=== PATIENT | male | born 1965 | race Caucasian/White ===

== ENCOUNTER → 2020-08-22 13:58 | Outpatient (BNVA) | payer MEDICARE, SELFPAY | PROVIDERS: Family Provider Family Medicine; PCP Family Medicine; Visit Provider Nurse Practitioner Family | DX: Z20.828 Contact with and (suspected) exposure to other viral communicable diseases (principal) | CPT/HCPCS: 87635 ==

== ENCOUNTER → 2020-09-18 13:22 | Outpatient (BNVA) | payer MEDICARE, SELFPAY | PROVIDERS: Family Provider Family Medicine; PCP Family Medicine; Visit Provider Family Medicine | DX: M25.512 Pain in left shoulder (principal); N40.0 Benign prostatic hyperplasia without lower urinary tract symptoms; Z12.5 Encounter for screening for malignant neoplasm of prostate; Z13.6 Encounter for screening for cardiovascular disorders | CPT/HCPCS: 80053; 85025; G0103 ==

== ENCOUNTER 2020-09-24 09:29 | Outpatient (CLI) | payer MEDICARE, SELFPAY ==
--- NOTE | 2020-09-24 09:43 | XR_ITS ---
WS: [id number] SHOULDER LEFT TECHNIQUE: 3 views of the left shoulder CLINICAL INFORMATION: left shoulder pain COMPARISON: None. FINDINGS: Mild degenerative arthritis left acromioclavicular joint. Rotator cuff arthropathy. Mild narrowing gl enohumeral joint. Acromion is normal in appearance. Normal glenoid. No evidence of acute fracture dis location. XR/XR shoulder LT min 2V* [id number] IMPRESSION: Mild degenerative arthritis left AC joint and glenohumeral joint.
== END 2020-09-24 09:30 | disposition home or self-care (01) ==
LOC: RADWPI 09:36
PROVIDERS: PCP Family Medicine; Visit Provider Family Medicine
DX: M19.012 Primary osteoarthritis, left shoulder (principal)
CPT/HCPCS: 73030

== ENCOUNTER 2020-09-27 10:27 | Outpatient (RCR) | payer MEDICARE, MEDICAID, SELFPAY | END 2020-10-07 23:59 | disposition home or self-care (01) | LOC: SPT 10:27 | PROVIDERS: PCP Family Medicine; Referring Provider Family Medicine; Visit Provider Family Medicine | DX: M25.512 Pain in left shoulder (principal) | CPT/HCPCS: 97161 ==

== ENCOUNTER → 2022-03-05 08:06 | Outpatient (BNVA) | payer MEDICARE, SELFPAY | PROVIDERS: PCP Family Medicine; Referring Provider Family Medicine; Visit Provider Orthopaedic Surgery | DX: G89.29 Other chronic pain (principal); M25.512 Pain in left shoulder | CPT/HCPCS: 99203; 99204 ==

== ENCOUNTER 2022-04-29 08:07 | Outpatient (CLI) | payer MEDICARE, SELFPAY ==
--- NOTE | 2022-04-29 08:45 | MR_ITS ---
WS: [id number] MRI LEFT SHOULDER HISTORY: Limited range of motion. Shoulder pain after injury 4 months ago. COMPARISON: Radiographs 09/24/2020 TECHNIQUE: Multiplanar sequences of the shoulder joint are submitted. Severe narrowing of the AC joint. No displacement. There is marrow edema in the adjacent distal clavi reggie and the acromion. Increased soft tissue stranding and T2 signal through the AC ligament. Moderate size osteophytes encroach upon the supraspinatus muscle and tendon near the myotendinous insertion. Very small amount of fluid in the subdeltoid bursa. No os acromion. Biceps tendon is in normal positi on. Normal signal and the biceps tendon. Mild narrowing of the glenohumeral joint. Humeral head is very slightly high riding. Focal insertion site tear measures 5 mm involving the supraspinatus tendon. Mild subacromial impingement upon the sup raspinatus tendon with mild tendinopathy in the distal 2 to 3 cm. Infraspinatus and subscapularis mus cles and tendons are intact. No atrophy or edema. Abnormal configuration of the anterior labrum. There is a very short focal tear involving the anterio r labrum. There is an additional tear through the superior labrum MR/MR shoulder LT wo con* [id number] IMPRESSION: 1. Severe AC joint narrowing with osteophytes and marrow edema. 2. AC joint osteophyte encroaching upon the supraspinatus myotendinous inserti on level. 3. 5 mm insertion site tear supraspinatus tendon without retraction or muscle edema. 4. Focal tears noted within the anterior and superior labrum. 5. Mild subacromial impingement secondary to 5 mm osteophyte with adjacent ten dinopathy in the supraspinatus tendon.
== END 2022-04-29 08:08 | disposition home or self-care (01) ==
PROVIDERS: PCP Family Medicine; Visit Provider Orthopaedic Surgery
DX: G89.29 Other chronic pain (principal); M25.712 Osteophyte, left shoulder; M75.102 Unspecified rotator cuff tear or rupture of left shoulder, not specified as traumatic
CPT/HCPCS: 73221

== ENCOUNTER → 2022-05-07 13:34 | Outpatient (BNVA) | payer MEDICARE, SELFPAY | PROVIDERS: PCP Family Medicine; Visit Provider Orthopaedic Surgery | DX: M75.102 Unspecified rotator cuff tear or rupture of left shoulder, not specified as traumatic (principal); S43.432A Superior glenoid labrum lesion of left shoulder, initial encounter; X50.0XXA Overexertion from strenuous movement or load, initial encounter | CPT/HCPCS: 99213; 99214 ==

== ENCOUNTER → 2022-06-18 08:49 | Outpatient (BNVA) | payer MEDICARE, SELFPAY | PROVIDERS: PCP Family Medicine; Visit Provider Orthopaedic Surgery | DX: X50.0XXA Overexertion from strenuous movement or load, initial encounter (principal); S43.432A Superior glenoid labrum lesion of left shoulder, initial encounter; S46.012A Strain of muscle(s) and tendon(s) of the rotator cuff of left shoulder, initial encounter; M75.42 Impingement syndrome of left shoulder; M19.012 Primary osteoarthritis, left shoulder | CPT/HCPCS: 99213; 99214 ==

== ENCOUNTER 2022-06-27 14:24 | Emergency (ER) | payer MEDICARE, SELFPAY ==
[2022-06-27 14:41] VITALS: BP 127/86; PULSE 91; RESP 18; TEMP 37.1; O2SAT 94; BMI 23.6
--- NOTE | 2022-06-27 14:55 | W.ED.EXTPRO ---
HPI - Extremity Problem General: Chief complaint: Extremity Injury, Upper Stated complaint: Left arm injury reinjured it this am Time Seen by Provider: 06/27/22 14:49 Source: patient Mode of arrival: ambulatory Limitations: no limitations History of Present Illness: 56-year-old male presents to the ER today for worsening left shoulder pain x8 hours. Patient reports he is due to have left rotator cuff repaired on 03 August. He reports he rolled over in bed this morning and felt a very loud pop. Patient reports his pain has been excruciating since that time. He reports normally the pain seems to come and go but this is not letting up at all. Patient describes as a screwdriver sticking into his bone and turning. Patient reports his even heard the pop. Patient reports being unable to lift his left arm either flexed or abducted at this time. Patient denies any numbness or tingling in the fingertips. Denies any swelling. Review of Systems General: Reports: 10 or more systems reviewed and unremarkable except in HPI and below PFSH ED PFSH: Medical History BPH (benign prostatic hyperplasia) Chronic low back pain with bilateral sciatica Dyslipidemia History of 2019 novel coronavirus disease (COVID-19) Surgical History H/O knee surgery History of appendectomy History of back surgery History of tonsillectomy Family History Father Parkinson disease Other Cancer Social History Smoking and tobacco status: former smoker Alcohol intake: former Physical Exam Const: COMMON NORMALS: average body habitus, patient oriented x3, no limitations, healthy appearing, alert and well nourished; apparent distress (appears uncomfortable) Resp: COMMON NORMALS: normal respiratory effort and No retractions EFFORT & INSPECTION: Yes able to speak in complete sentences Cardio: COMMON NORMALS: regular rate and regular rhythm RATE: regular rate RHYTHM: regular rhythm Extremity: NARRATIVE EXTREMITY EXAM: Patient has his left arm in a sling. He is unable to abduct the left shoulder without severe pain. He has tenderness over the acromion. Patient also has tenderness along the deltoid. No swelling or deformity noted. Neuro: COMMON NORMALS: patient oriented x3 SENSORIUM/ORIENTATION: Yes alert Psych: COMMON NORMALS: mental status grossly normal, Normal thought process present and cooperative THOUGHT PROCESS: Normal thought process present Skin: COMMON NORMALS: no rashes or lesions noted and no wounds GENERAL SKIN EXAM: no rashes or lesions noted Course ED course: Patient presents for worsening left arm pain after rolling over and feeling a pop this morning. Given the loud pop and severe pain, we will go ahead and get an x-ray to rule out fracture. Vital Signs: Vital signs: Vital Signs Temperature 98.7 F 06/27/22 14:41 Pulse Rate 91 06/27/22 14:41 Respiratory Rate 18 06/27/22 14:41 Blood Pressure 127/86 06/27/22 14:41 Pulse Oximetry 94 06/27/22 14:41 Oxygen Delivery Me thod 06/27/22 14:41 MDM - Extremity (Nontraumatic) Medical Decision Making X-ray has not changed. Patient likely exacerbated and already torn rotator cuff. We will treat with a Medrol Dosepak, anti-inflammatory, and muscle relaxer to see if that can take the edge off of the pain. Recommended patient contact Ortho doctor on Thursday to see about a quicker appointment. Return to the ER with new or worsening symptoms. Patient verbalized understanding and was in agreement with the treatment plan. 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 Critical Care Time Critical Care Time: Critical Care Time: No Discharge Plan Discharge Patient Disposition: Home Clinical Impression: Chronic pain in left shoulder Condition: Stable Prescriptions: New methocarbamol 750 mg tablet 750 mg PO Q8H 7 Days Qty: 21 0RF Medrol (Yovani) 4 mg tablets,dose pack See Rx Instructions .ROUTE .COMPLEX Qty: 21 0RF Rx Instructions: orally per package directions meloxicam 15 mg tablet 15 mg PO DAILY Qty: 14 0RF No Action diclofenac potassium 50 mg tablet 50 mg PO BID Qty: 60 0RF Discharge Orders: Discharge ED (Routine); Ordered 06/27/22 Ordered By: Eileen Green Referrals: Leela Madsen DO [Primary Care Provider] - Discharge Diet: Usual diet Discharge Activity: Increase activity as tolerated Patient Instructions: Opioid Safety, Pain Management Activity Restrictions/Additional Instructions: Take medications as prescribed. Apply ice alternated with heat. F/U with ortho in 5-7 days. Return to the ER with any new or worsening symptoms. Print Language: Lithuanian Coding Level of Care Code ED It Portfolio Manager for Fozia Fwjamal Exam Detailed
--- NOTE | 2022-06-27 15:16 | XR_ITS ---
WS: [id number] Left shoulder, 3 views, 06/27/2022 Clinical Data: worsening L shoulder pain Comparison: None. Findings: No fractures or dislocations are seen. The AC joint shows mild narrowing. The glenohumeral joint is a lso minimally narrow. The adjacent left clavicle, left scapula and ribs are normal. The soft tissues are unremarkable. 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
[2022-06-27] MEDS: ketorolac 30 mg/mL INJ IM (15:41)
[2022-06-27] MEDS: orphenadrine 30 mg/mL Inj 2 mL 60 MG IM (15:41)
== END 2022-06-27 15:51 | disposition home or self-care (01) ==
PROVIDERS: Emergency Provider Physician Assistant; PCP Family Medicine
DX: M19.012 Primary osteoarthritis, left shoulder (principal); Z87.891 Personal history of nicotine dependence
CPT/HCPCS: 73030; 96372; 99284; J1885; J2360

== ENCOUNTER 2022-07-03 09:25 | Day surgery (SDC) | payer MEDICARE, SELFPAY ==
[2022-07-02 13:42] VITALS: BMI 24.3
[2022-07-03] VITALS (8 sets, daily range): BP systolic 118–143; BP diastolic 77–98; PULSE 62–84; RESP 16–18; TEMP 36.3–37.2; O2SAT 95–100
[2022-07-03] MEDS: acetaminophen 500 mg Tablet 1000 MG PO (10:27)
[2022-07-03] MEDS: sodium chloride 0.9% 1,000 ML 30 ML IV (10:27)
[2022-07-03] MEDS: ondansetron 2 mg/ML SDV 2 mL 4 MG IVP (10:27)
--- NOTE | 2022-07-03 10:30 | W.PM.OPSUD ---
Surgery/Procedure H&P Update DATE OF PROCEDURE: July 03, 2022 DATE H&P PERFORMED: 06/18/22 H&P UPDATE INFORMATION: I have reviewed H&P completed within last 30 days PREOP DIAGNOSIS: Left labral tear, partial-thickness rotator cuff tear, impingement, degener PLANNED PROCEDURE: Operation Date: 07/03/22 11:05 Proposed Procedures p diagnostic left shoulder arthroscopy with other indicated procedures/ 09801,M75.102(Left) - Logan Perez MD
[2022-07-03] MEDS: ceFAZolin 2,000 MG in sodium chloride 0.9% (plus) 50 ML 100 MG IV (10:49)
--- NOTE | 2022-07-03 11:23 | ANES.PREANE2 ---
Pre-Anesthetic Assessment Height/Weight: Height 1.75 m Weight 74.843 kg Temp Pulse Resp BP Pulse Ox O2 Del Method 98.9 F 71 18 143/98 98 07/03/22 10:22 07/03/22 10:22 07/03/22 10:22 07/03/22 10:22 07/03/22 10:22 07/03/22 10:22 Preop Diagnosis: Left labral tear, partial-thickness rotator cuff tear, impingement, degener Operation Date: 07/03/22 11:05 Proposed Procedures p diagnostic left shoulder arthroscopy with other indicated procedures/ 26912,M75.102(Left) - Lgoan Perez MD Familial anesthetic complications: none Was Beta Ruth taken within 24 hours: N/A Was Clonidine taken within 24 hours: N/A Last intake: Intake Last Liquid Date 07/02/22 Last Liquid Time 23:50 Last Solid Date 07/02/22 Last Solid Time 21:00 Social Tobacco (h/o smoking) and No alcohol Exam alert, oriented x 3 and regular rate & rhythm Airway Submandibular: within normal limits Cervical ROM: within normal limits Mallampati: Class II Dentition: chipped and false (upper) Pulmonary Chronic Obstructive Pulmonary Disease and Cough Musc/skel Lower Back Pain and Osteoarthritis/DJD Anesthetic Plan ASA status: 2 Anesthesia: General and Regional (specify below) (Left interscalene nerve blk) Medications/Allergies Home Medications Medication Instructions Recorded Confirmed Last Taken Type diclofenac potassium 50 mg tablet 50 mg PO BID #60 tabs 01/30/22 07/03/22 Unknown Rx meloxicam 15 mg tablet 15 mg PO DAILY #14 tabs 06/27/22 07/03/22 07/02/22 Rx methocarbamol 750 mg tablet 750 mg PO Q8H 7 days #21 tabs 06/27/22 07/03/22 07/02/22 Rx acetaminophen 325 mg capsule 500 mg PO 2XD pain 07/02/22 07/03/22 07/02/22 History (Tylenol) Allergies Allergy/AdvReac Type Severity Reaction Status Date / Time No Known Allergies Allergy Verified 07/02/22 13:36 Current Medications Generic Name Dose Route Start Last Admin Trade Name Freq PRN Reason Stop Dose Admin Sodium Chloride 1,000 mls @ 30 mls/hr 07/03/22 09:45 07/03/22 10:27 Sodium Chloride 0.9% IV 07/04/22 09:44 30 mls/hr .Q24H MAYRA Administration Ondansetron HCl 4 mg 07/03/22 09:44 07/03/22 10:27 Ondansetron 2 Mg/Ml Sdv 2 Ml IVP 4 mg Q5M PRN Administration NAUSEA AND VOMITING PFSH Anesthesia Medical History BPH (benign prostatic hyperplasia) Chronic low back pain with bilateral sciatica Dyslipidemia History of 2019 novel coronavirus disease (COVID-19) Surgical History H/O knee surgery History of appendectomy History of back surgery History of tonsillectomy Family History Father Parkinson disease Other Cancer Social History Smoking and tobacco status: former smoker Alcohol intake: former Data Anesthesia Cardiac Studies: No Data to Display Anesthesia Procedures Nerve Block Nerve Block 1: Main Anesthesia: general anesthesia Time Out Performed: Yes Consent: requested by attending/covering physician, from patient, risks and benefits reviewed and patient agrees to proceed Nerve block location: interscalene (left) Anesthesia monitors applied: pulse oximetry, EKG, BP cuff and oxygen Nerve block position: semi sitting Anesthetic Used: ropivicaine 0.5% Amount of anesthesia used (mL): 30 Ultrasound used to: recognize landmarks and visualize and ID brachial plexus Injection: neg aspiration of heme Patient Tolerated Procedure: well Complications: none
--- NOTE | 2022-07-03 13:37 | P.OP_ITS ---
Operative Report Date of procedure: July 03, 2022 Pre-op diagnosis: Preop Diagnosis Left labral tear, partial-thickness rotator cuff tear, impingement, degener Post-op diagnosis: same Procedure done: Left shoulder 1) Arthroscopic debridement superior labral anterior posterior tear and partial- thickness rotator cuff tear 2) arthroscopic left subacromial decompression 3) arthroscopic left distal clavicle excision Pathology: none sent Surgeon: Logan Perez Anesthesia: General and Nerve Block (Interscalene block) Estimated blood loss (mL): 10 Findings: The patient had had an unstable superior labrum from approximately the 10:00 to 2 o'clock position with a poor medialized attachment of his biceps. The biceps tendon was otherwise healthy. He had undersurface tearing across the footprint of the supraspinatus tendon that did not involve more than 25% of the thickness of the tendon. The bursal aspect of the rotator cuff with healthy. He had prominent anterior spurring of his acromion and enlargement degenerative changes instability of the distal clavicle, Condition: stable Disposition: PACU Brief History: The patient is a 56-year-old male with a nearly 2-year history of pain in his left shoulder. In January of this year he states he was lifting a bag out of his car with a tearing sensation and immediate pain. He was managed with Tylenol, anti-inflammatories, and even a home exercise program without improvement. Ultimately an MRI was obtained showing tearing of his superior labrum, articular sided rotator cuff tear, prominent subacromial spurring and degenerative changes of his acromioclavicular joint. He was taken to the operating room for evaluation and treatment of his labral pathology and rotator cuff and a sub acromial decompression distal clavicle excision of left shoulder. Procedure: The patient was given an interscalene block in holding. He was taken to the operating room where he was given 2 g of Ancef and a general anesthesia. He was positioned in the lateral position with his left arm and 10 pounds of traction. A timeout was performed. The shoulder was initially entered through a posterior portal made 2 cm inferior and medial to the posterior corner of the acromion. Anterior working portal was made with a scalpel blade. The diagnostic portion of arthroscopy was performed. The superior labrum was probed with instability noted of the biceps attachment from approximately 10:00 to the 2 o'clock position. The labrum was lightly debrided back with the [employer]rewolf revealing sterile margins but persistent instability of the attachment. I decision was made to proceed with a biceps tenodesis. The [employer]rewolf probe was used to release the biceps from its superior labrum. The undersurface of the rotator cuff was inspected where areas of partial-thickness tearing was noted. The [employer] Werewolf was used to debride back the rotator cuff. At no point was just degeneration/tearing thought to extend through more than 25% of the thickness of the tendon. The scope was then moved to the subacromial space. A 8 mm inflow cannula was placed anteriorly through the previous anterior portal and directed in the subacromial space. A scalpel blade was used to open up the lateral portal. Abundant bursal tissue was identified and removed with the incisor shaver and [employer] Werewolf probe. The leading edge of the acromion was outlined revealing quite a bit of anterior spurring which close the subacromial space. As rotator cuff tearing and significant bursitis was identified decision was made to proceed with the decompression. A 5.5 mm acromionizer was introduced through the lateral portal and approximately 5 mm of anterior and inferior acromion removed, converting the acromion to type I morphology. Attention was then focused on the distal clavicle. Working through the anterior portal the distal clavicle was outlined. The 5.5 mm acromionizer was introduced and approximately 8 mm of distal clavicle excised. Finally we focused on the biceps tenodesis. Over the anterior axillary fold a 3 cm long incision was made. Dissection was carried up underneath the deltoid and beneath the pec manually bring it to the bicipital groove. The biceps tendon was identified and retracted into the wound. Hohmann retractor was placed over the humerus and the bicipital groove visualized. 2 1.8 mm Q fix anchors were placed approximately a centimeter apart. Each suture was passed across the biceps and a luggage tag fashion with slight flexion of the elbow and traction taken across the arm securing the biceps just above the musculotendinous junction to the bicipital groove. The biceps tenodesis incision closed with deep 2-0 Vicryl stitches in interrupted 3-0 Prolene. Portals were closed with 3-0 Prolene. Xeroflo gauze were placed over the axillary incision and sterile 4 x 4's, ABD pads, and Medipore tape placed over the incisions. The patient was placed in a sling and taken to recovery in stable condition.
[2022-07-03] MEDS: oxyCODONE 5 mg IR Tab/Cap PO (14:03)
--- NOTE | 2022-07-03 14:40 | ANE.PACU2 ---
Inpatient post-anesthesia follow up: Airway intact: Yes Vital signs: Temperature 97.9 F Pulse Rate 71 Respiratory Rate 18 Blood Pressure 124/82 Pulse Oximetry 96 Oxygen Delivery Me thod Room Air Oxygen Flow Rate 6 Fraction of Inspir ed Oxygen Hydration adequate: Yes Nausea and vomiting: No Pain level: 2 Mental status: Baseline
== END 2022-07-03 14:25 | disposition home or self-care (01) ==
PROVIDERS: PCP Family Medicine; Visit Provider Orthopaedic Surgery
PROC: (CPT 29805; principal; 2022-07-03 10:55)
DX: M75.102 Unspecified rotator cuff tear or rupture of left shoulder, not specified as traumatic (principal); Z87.891 Personal history of nicotine dependence; J44.9 Chronic obstructive pulmonary disease, unspecified; M19.90 Unspecified osteoarthritis, unspecified site; N40.0 Benign prostatic hyperplasia without lower urinary tract symptoms; E78.5 Hyperlipidemia, unspecified; Z86.16 Personal history of COVID-19
CPT/HCPCS: 29826; 29827; 29828; C1713; J0690; J1100; J1170; J2250; J2405; J2704; J2710; J2795; J3010; J3490; J7030

== ENCOUNTER → 2022-07-16 09:05 | Outpatient (BNVA) | payer MEDICARE, SELFPAY | PROVIDERS: PCP Family Medicine; Visit Provider Orthopaedic Surgery | DX: Z98.890 Other specified postprocedural states (principal) | CPT/HCPCS: 99024 ==

== ENCOUNTER 2022-08-20 06:00 | Outpatient (RCR) | payer MEDICARE, SELFPAY | END 2022-09-06 23:59 | disposition home or self-care (01) | LOC: SPT 06:00 | PROVIDERS: PCP Family Medicine; Visit Provider Orthopaedic Surgery | DX: M75.102 Unspecified rotator cuff tear or rupture of left shoulder, not specified as traumatic (principal); M25.512 Pain in left shoulder; R53.1 Weakness; M25.612 Stiffness of left shoulder, not elsewhere classified | CPT/HCPCS: 97161 ==

== ENCOUNTER 2022-09-07 06:00 | Outpatient (RCR) | payer MEDICARE, SELFPAY | END 2022-09-10 23:59 | disposition home or self-care (01) | LOC: SPT 06:00 | PROVIDERS: PCP Family Medicine; Visit Provider Orthopaedic Surgery | DX: M75.102 Unspecified rotator cuff tear or rupture of left shoulder, not specified as traumatic (principal) | CPT/HCPCS: 97110 ==

== ENCOUNTER → 2022-09-09 08:12 | Outpatient (BNVA) | payer MEDICARE, SELFPAY | PROVIDERS: PCP Family Medicine; Visit Provider Orthopaedic Surgery | DX: Z98.890 Other specified postprocedural states (principal); M25.522 Pain in left elbow | CPT/HCPCS: 99024; 99213 ==